=== PATIENT | male | born 1960 | race Hispanic/Latino ===

== ENCOUNTER 2017-05-04 00:06 | Emergency (ER) | payer OTHER ==
[~2017-05-04] VITALS: Ht 172.7 cm; Wt 78.6 kg
[2017-05-04 00:10] VITALS: BP 123/72; PULSE 68; RESP 16; O2SAT 96
--- NOTE | 2017-05-04 00:52 | ED.REPORT ---
HPI-Eye Problem Date of Service May 04, 2017 ED Provider: Gianni Oneal DO Pt is a 56 year old male with a history of HTN who presents to the ED with right eye laceration after hitting his eye on a high pressure hose valve while at work. He was using a high pressure hose when he lost control of it, and the valve hit his eye. The pt c/o associated right eye pain and headache. He denies any other symptoms. Nursing Notes Stated Complaint: R EYE INJURY WORK RELATED Chief Complaint: Eye Nursing Notes Reviewed: Yes Allergies: Coded Allergies: No Known Allergies (Unverified , 05/04/17) General Time Seen by MD: 00:51 Chief Complaint Right eye affected Hx Obtained From: Patient Arrived By: Walk-in Sudden in Onset?: No Onset Occurred: Onset unknown Symptom Duration: Since onset Location: : Eye right Quality: Painful Severity: Current: Moderate Severity: Maximum: Moderate Immunizations: All up to date Recent Healthcare: No recent doctor visit, No recent hospitalization Similar Sx Previous: No Past Medical History Past Medical History Denies Past Surgical History Denies Smoking History Unknown if Ever Smoker Social History Denies Review of Systems + Right eye laceration Constitutional: Denies: Fever Eyes: Reports: Eye pain right Neurologic: Reports: Headache Complete sys rev & neg: except as marked. Respiratory: Denies: Non-productive cough, Shortness of breath Physical Exam Initial Vital Signs Vital Signs (First) Date Time Temp Pulse Resp B/P Pulse Ox O2 Delivery O2 Flow Rate FiO2 05/04/17 00:10 36.3 68 16 123/72 96 Room Air Initial VS: Reviewed Neck: Supple, Non-tender, Full range of motion Respiratory: Breath sounds normal, Clear to auscultation, No respiratory distress Cardiovascular: Regular rate & rhythm, Heart sounds normal, Intact distal pulses Abdomen / GI: Soft, Non-tender Extremities: Vascular intact, Neuro intact Skin: Warm, Dry, No cyanosis Neurologic: Alert, Oriented, Nonfocal Psychiatric: Mood/affect normal, Behavior normal Head / Eyes: Normocephalic Right eyelid laceration Sub conjunctiva hemorrhage on the right No hyphema or cells in anterior wall General/Constitutional: Awake (x4), Alert, Cooperative, Not toxic appearing Interpretation & Diagnostics ORBIT CT: IMPRESSION: Minimally displaced fracture of the medial wall of right orbit extending to the adjacent portions of the cribriform plate and medial aspect of the right orbital roof. Pneumocephaly. Right orbital emphysema. Transmitted to the ED at 02:09 by Raffy Montes M.D. Procedures Pt had a skin flap type of avulsion over his eyelid that that we were unable to sew, but we were able to steri strip it. Consent was obtained and hygiene practices were observed. Re-Eval/Medical Decision Med Decision/Clinical Course CT scan showed orbital wall fracture, cribriform plate fracture and trace pneumocephalus. There is also air in the soft tissue surrounding the orbit. No evidence for retrobulbar hematoma. No evidence of skull fracture. I consulted with the on-call collision repairer Dr. Hernandez. She will see this gentleman tomorrow in the office. We will place him on a course of empiric antibiotics and eyedrops. I perform serial ocular examinations. No hyphema. No evidence of retinal detachment. Visual acuity intact in all 4 quadrants. Pupils are equal round reactive to light bilaterally. No limitations to extra ocular motion. We are unable to repair the laceration of the lids was Steri- Stripped. Source of Hx: Old records Re-Evaluation/Progress #1: Time of Eval: 02:11 Re-Evaluation/Progress Note: Pt rechecked. Pt had a skin flap type of avulsion over his eye lid that we were not able to sew, but we were able to steri-strip it. All questions were answered. Re-Evaluation/Progress #2: Time of Eval: 02:46 Re-Evaluation/Progress Note: Pt rechecked. Informed pt of plan for discharge. Pt understands and agrees with plan for discharge. F/U instructions and RTER warnings given. All questions addressed. 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 Counseled Regarding: Diagnosis, Lab results, Need for follow-up, When/why to return to ED Discharge & Departure Primary Impression: Ocular trauma of right eye Encounter type: initial encounter Qualified Code: S05.91XA - Unspecified injury of right eye and orbit, initial encounter Additional Impressions: Orbital fracture Encounter type: initial encounter Fracture type: open Qualified Code: S02.80XB - Fracture of other specified skull and facial bones, unspecified side , initial encounter for open fracture Cribriform plate fracture Encounter type: initial encounter Fracture type: open Qualified Code: S02.19XB - Other fracture of base of skull, initial encounter for open fracture Subconjunctival hemorrhage Laterality: right Qualified Code: H11.31 - Conjunctival hemorrhage, right eye Disposition: Home Discharge Condition All VS Reviewed: Yes Condition: Stable Patient Instructions: Facial Fracture (ED), Laceration (ED), Subconjunctival Hemorrhage (ED) Additional Instructions: Take Augmentin twice daily for 7 [address] to prevent infection[address] Place 1 drop of the Cipro in the right eye every 8 hours for 7 days. Call the referral collision repairer tomorrow. You need to be seen in the office tomorrow. By tomorrow I mean later today on May 04. Take [place] 1-2 every 6 hours as needed Do not drive or drink alcohol or consume acetaminophen while taking [place]. Return to the Emergency Department for any concerning or worsening symptoms. [place] el aumento dos veces al da maryan 7 escobar para prevenir la infeccin. Coloque 1 gota del Cipro en el luis m derecho cada 8 horas maryan 7 escobar. Llama al oftalmlogo de referencia maana. Necesitas que te vean en la oficina maana. Para maana me refiero a ms massey hoy el . [place] 1-2 cada 6 horas segn sea necesario no conduzca ni chiara alcohol ni consuma acetaminofn mientras est tomando [place]. Vuelva al Departamento de emergencias para cualquier sntoma o empeoramiento de los sntomas. [facility] Scribe Attestation Portions of this note were transcribed by Genesis Driscoll. I, Dr. Oneal personally performed the history, physical exam and medical decision-making; I reviewed and confirmed the accuracy of the information in the transcribed note. Signed by: Radha Johnson, 05/04/17 and 01:30 copies to: [facility]; [facility] Gianni Oneal DO May 04, 2017 00:52 Genesis Raines May 04, 2017 00:59
[2017-05-04] MEDS ORDERED: Tetracaine 0.5% 4 mL Ophthalmic Solution RIGHT_EYE ONE (01:20)
[2017-05-04] MEDS ORDERED: Amoxicillin-Clav 875-125 mg Tablet PO ONE (02:10)
[2017-05-04] MEDS ORDERED: Ciprofloxacin 0.3% 5 mL Ophthalmic Solution RIGHT_EYE SCH ×2 (02:30→06:30)
[2017-05-04] MEDS ORDERED: _HYDROcodone/APAP 5-325 mg Tablet PO PRN (02:55)
[2017-05-04 03:25] VITALS: BP 123/72; PULSE 68; RESP 14; O2SAT 96
[2017-05-04] MEDS ORDERED: Moxifloxacin 0.5% 3 mL Ophthalmic Solution BOTH_EYES SCH (08:30)
--- NOTE | 2017-05-04 09:18 | DRSVH ---
PROCEDURE: CT ORBITS WITHOUT CONTRAST ([id number]) INDICATIONS: blunt ocular trauma TECHNIQUE: Noncontrast 3.0 mm axial images acquired through the orbits. For radiation dose reduction, the follo wing was used: automated exposure control. COMPARISON: None. FINDINGS: Image quality: Excellent. There is a minimally displaced fracture of the medial wall of the right orbit, with superior extensio n to the cribriform plate, and the medial wall of the orbital roof. There is associated right orbital emphysema. There is a small amount of adjacent right anterior pneumocephalus. Remaining osseous structures appear grossly intact. The paranasal sinuses are clear. The globes appea r grossly intact. IMPRESSION: Minimally displaced fracture involving the medial wall of the right orbit with a superior extension i nto the cribriform plate and medial right orbital roof. Associated right orbital emphysema, and trace pneumocephaly. Dictated by: Evan Mancia M.D. on 05/04/2017 at 9:09 Approved by: Evan Mancia M.D. on 05/04/2017 at 9:16
== END 2017-05-04 03:25 | disposition home or self-care (01) ==
LOC: SED 00:29
DX: S02.81XB Fracture of other specified skull and facial bones, right side, initial encounter for open fracture (principal); S02.19XB Other fracture of base of skull, initial encounter for open fracture; S01.111A Laceration without foreign body of right eyelid and periocular area, initial encounter; S05.8X1A Other injuries of right eye and orbit, initial encounter; H11.31 Conjunctival hemorrhage, right eye; W22.8XXA Striking against or struck by other objects, initial encounter; Y93.89 Activity, other specified; Y99.0 Civilian activity done for income or pay; Y92.69 Other specified industrial and construction area as the place of occurrence of the external cause; I10 Essential (primary) hypertension